=== PATIENT | male | born 1975 ===

== ENCOUNTER 2019-12-31 21:29 | Emergency (ER) | payer SELFPAY ==
[2019-12-31 21:45] VITALS: BP 148/98; PULSE 81; RESP 20; TEMP 36.2; O2SAT 100
[2019-12-31 22:44] VITALS: BP 164/96; PULSE 67; RESP 18; TEMP 36; O2SAT 100
--- NOTE | 2019-12-31 23:24 | PC.NURSE ---
PT SPOKE TO NURSE AND STATED I JUST SPOKE WITH MY PCP ON THE PHONE AND HE SAID I CAN JUST LEAVE. I DONT NEED TO BE SEEN, HE WILL ATTEMPT TO SEE ME ON FRIDAY.
== END 2019-12-31 23:30 | disposition left against medical advice (07) ==
LOC: ANHED 02-07 14:46
DX: I10 Essential (primary) hypertension (principal)
CPT/HCPCS: 99199